=== PATIENT | male | born 1945 | race Caucasian/White ===

== ENCOUNTER → 2018-04-27 06:50 | Outpatient (CLI) | payer MEDICARE, OTHER, SELFPAY ==
[2018-04-27 08:23] LABS: Alanine Aminotransferase 37 IU/L (21-72); Albumin 4.1 g/dL (3.5-5.0); Albumin Globulin Ratio 1.5 (1.0-2.8); Alkaline Phosphatase 42 U/L (38-126); Aspartate Aminotransferase 28 IU/L (17-59); BUN Creatinine Ratio 24.4 (6-22); Bilirubin Total 0.9 mg/dL (0.2-1.3); Blood Urea Nitrogen 22 mg/dL (9-20); Calcium 9.4 mg/dL (8.4-10.2); Carbon Dioxide 32 mmol/L (22-32); Chloride 105 mmol/L (98-107); Estimated Glomerular Filt Rate > 60.0 mL/min (>60); Globulin 2.8 g/dL (1.7-4.1); Glucose 96 mg/dL (80-110); HEMOLYSIS < 15 (0-50); Potassium 4.8 mmol/L (3.4-5.1); Sodium 143 mmol/L (137-145); Total Protein 6.9 g/dL (6.3-8.2)
[2018-04-27 08:25] LABS: Add Manual Diff / Slide Review NO; Basophils Percent Auto 0.9 % (0-2); Eosinophils Percent Auto 2.2 % (2-4); Hematocrit 45.5 % (41-53); Hemoglobin 15.8 g/dL (13.5-17.5); Lymphocytes Percent Auto 29.6 % (25-40); Mean Corpuscular HGB Conc 34.8 % (30-36); Mean Corpuscular Hemoglobin 31.2 PG (26-34); Mean Corpuscular Volume 89.6 fL (80-100); Monocytes Percent Auto 7.6 % (3-14); Neutrophils Absolute Auto 3400 /uL (3000-5900); Neutrophils Percent Auto 59.7 % (50-75); Platelet Count 222 X10^3/uL (150-400); Red Blood Cell Count 5.08 X10^6/uL (4.5-5.9); Red Cell Distribution Width 12.8 % (11.6-14.8); White Blood Cell Count 5.7 X10^3/uL (4.5-11.0)
[2018-04-27 13:01] LABS: Cholesterol 193 mg/dL (140-199); HDL Cholesterol 60 mg/dL (40-60); LDL Cholesterol Calculated 116 mg/dL (<100); Triglycerides 86 mg/dL (35-150)
== END ==
PROVIDERS: PCP Family Medicine; Visit Provider Family Medicine
DX: E78.5 Hyperlipidemia, unspecified (principal); N40.1 Benign prostatic hyperplasia with lower urinary tract symptoms; Z00.00 Encounter for general adult medical examination without abnormal findings; Z12.5 Encounter for screening for malignant neoplasm of prostate
CPT/HCPCS: 36415; 80053; 80061; 84443; 85025; G0103

== ENCOUNTER → 2018-07-29 08:46 | Outpatient (CLI) | payer MEDICARE, OTHER, SELFPAY ==
--- NOTE | 2018-07-29 | DI.MRI.S_ITS ---
PROCEDURE: MR PELVIS WO CON INDICATIONS: PERSISTENT INTERMITTENT LEFT GROIN PAIN TECHNIQUE: Noncontrast coronal T1 spin echo and STIR through the bony pelvis. Sagittal T2 FSE with fat saturation, axial T1, STIR, and T2 FSE with fat saturation through the symphysis pubis. COMPARISON: None. FINDINGS: Image quality: Excellent. Tendons and muscles: The attachments of the rectus abdominis appear intact bilaterally. There is mild peritendinous edema along the left adductor longus origin with a small associated avulsion fracture. This The intervening common aponeurosis demonstrates minimal associated edema in the left. More inferiorly, the adductor longus musculotendinous junctions demonstrate minimal edema. More inferior images demonstrate no fascial herniations of the adductor longus muscle fibers. Bony structures: There is a small region of focal bone marrow edema in the left pubic body along the symphysis pubis with a small avulsion fracture inferiorly. There is mild edema within the pubic symphysis. No suspicious marrow space occupying lesions. Other tendons: The gluteus medius and minimus tendons appear intact, without associated muscle atrophy. The iliopsoas tendon appears intact, without adjacent bursal fluid collections. The origin of the hamstring tendons are intact at the ischial tuberosities. Hip joints: Larger field of view images demonstrate no avascular necrosis of the femoral heads. Limited evaluation of the labrum demonstrates a small amount of associated fluid signal on the left along the superior and anterosuperior labrum suggestive of a small tear with an associated small paralabral cyst. A suspected paralabral cyst is also demonstrated adjacent to the right labrum measuring up to 0.9 cm. Soft tissues: Immediately lateral to the rectus abdominis tendon fibers, the superficial rings of the inguinal canals demonstrate a small fat containing left inguinal hernia. The proximal sciatic neurovascular bundles appear normal adjacent to the hamstring tendons. No free pelvic fluid. Bladder wall thickness is normal. Genitourinary structures and bowel loops appear normal where visualized. IMPRESSION: 1. Mild peritendinitis at the origin of the left adductor longus with a small avulsion fracture from the inferior left pubic body along the pubic symphysis. 2. Possible labral tears with suspected paralabral cysts. If clinically indicated, further evaluation may be obtained with a dedicated MR arthrogram. Dictated by: Kasi Rhodes M.D. on 07/29/2018 at 10:08 Approved by: Kasi Rhodes M.D. on 07/29/2018 at 10:22
== END ==
PROVIDERS: PCP Family Medicine; Visit Provider Family Medicine
DX: S32.592A Other specified fracture of left pubis, initial encounter for closed fracture (principal); M77.8 Other enthesopathies, not elsewhere classified; R10.32 Left lower quadrant pain
CPT/HCPCS: 72195

== ENCOUNTER → 2019-05-24 07:51 | Outpatient (CLI) | payer MEDICARE, OTHER, SELFPAY ==
[2019-05-24 08:29] LABS: Add Manual Diff / Slide Review NO; Basophils Absolute Auto 0 /uL (0-100); Basophils Percent Auto 0.7 % (0-2); Eosinophils Absolute Auto 100 /uL (0-450); Eosinophils Percent Auto 2.4 % (2-4); Hemoglobin 16.3 g/dL (13.5-17.5); Lymphocytes Absolute Auto 1500 /uL (1100-4500); Lymphocytes Percent Auto 23.3 % (25-40); Mean Corpuscular HGB Conc 34.6 % (30-36); Mean Corpuscular Hemoglobin 31.5 PG (26-34); Mean Corpuscular Volume 91.2 fL (80-100); Monocytes Absolute Auto 500 /uL (0-900); Monocytes Percent Auto 7.3 % (3-14); Neutrophils Absolute Auto 4200 /uL (1500-7000); Neutrophils Percent Auto 66.3 % (50-75); Platelet Count 216 X10^3/uL (150-400); Red Blood Cell Count 5.16 X10^6/uL (4.5-5.9); Red Cell Distribution Width 12.9 % (11.6-14.8); White Blood Cell Count 6.3 X10^3/uL (4.5-11.0)
[2019-05-24 08:51] LABS: Alanine Aminotransferase 36 IU/L (21-72); Albumin 4.2 g/dL (3.5-5.0); Albumin Globulin Ratio 1.4 (1.0-2.8); Alkaline Phosphatase 48 U/L (38-126); Aspartate Aminotransferase 30 IU/L (17-59); BUN Creatinine Ratio 22.5 (6-22); Bilirubin Total 0.8 mg/dL (0.2-1.3); Blood Urea Nitrogen 18 mg/dL (9-20); Calcium 9.7 mg/dL (8.4-10.2); Carbon Dioxide 29 mmol/L (22-32); Chloride 103 mmol/L (98-107); Cholesterol 222 mg/dL (140-199); Estimated Glomerular Filt Rate > 60.0 mL/min (>60); Globulin 2.9 g/dL (1.7-4.1); Glucose 99 mg/dL (80-110); HDL Cholesterol 66 mg/dL (40-60); HEMOLYSIS < 15 (0-50); LDL Cholesterol Calculated 132 mg/dL (<100); Potassium 4.5 mmol/L (3.4-5.1); Sodium 141 mmol/L (137-145); Total Protein 7.1 g/dL (6.3-8.2); Triglycerides 119 mg/dL (35-150)
[2019-05-24 09:22] LABS: Thyroid Stimulating Hormone 2.54 uIU/mL (0.47-4.68)
[2019-05-24 09:40] LABS: Hep C Virus Ab w/Reflex Quant NEGATIVE s/c (NEGATIVE)
== END ==
PROVIDERS: PCP Student in an Organized Health Care Education/Training Program; Visit Provider Student in an Organized Health Care Education/Training Program
DX: Z00.00 Encounter for general adult medical examination without abnormal findings (principal); Z11.59 Encounter for screening for other viral diseases; E78.5 Hyperlipidemia, unspecified
CPT/HCPCS: 36415; 80053; 80061; 84443; 85025; 86803

== ENCOUNTER → 2019-06-14 12:31 | Outpatient (CLI) | payer MEDICARE, OTHER, SELFPAY ==
[2019-06-14 16:37] LABS: Hep C Virus Ab w/Reflex Quant NEGATIVE s/c (NEGATIVE)
== END ==
PROVIDERS: PCP Student in an Organized Health Care Education/Training Program; Visit Provider Student in an Organized Health Care Education/Training Program
DX: Z13.820 Encounter for screening for osteoporosis (principal); Z78.9 Other specified health status
CPT/HCPCS: 36415; 77080; 86803

== ENCOUNTER → 2020-10-17 11:42 | Outpatient (CLI) | payer MEDICARE, OTHER, SELFPAY ==
--- NOTE | 2020-10-17 11:46 | DI.CT.S_ITS ---
PROCEDURE: CT SINUS SCREEN WO CON INDICATIONS: Chronic pansinusitis TECHNIQUE: Noncontrast 3.0 mm axial images acquired from the frontal sinuses to the mid-sella, with coronal and sagittal reformats. For radiation dose reduction, the following was used: automated exposure control, adjustment of mA and/or kV according to patient size. COMPARISON: None. FINDINGS: Image quality: Excellent. Maxillary Sinuses: There is minimal mucosal thickening involving the floor of the maxillary antrum bilaterally. Ethmoid Air Cells: No bony remodeling or destruction. Sinuses are clear. Sphenoid Sinuses: No bony remodeling or destruction. Sinuses are clear. Frontal Sinuses: No bony remodeling or destruction. Sinuses are clear. Ostiomeatal Complexes: Ostiomeatal complexes are patent. No Christopher cells. Miscellaneous: Visualized intra-orbital contents are normal. No yomi bullosa or paradoxical turbinate curvature. No nasal septal deviation. IMPRESSION: Mild mucosal thickening involving the floor of the maxillary antrum bilaterally. Dictated by: Yoseph Mosqueda M.D. on 10/17/2020 at 15:46 Approved by: Yoseph Mosqueda M.D. on 10/17/2020 at 15:51
== END ==
PROVIDERS: PCP Student in an Organized Health Care Education/Training Program; Referring Provider Otolaryngology; Visit Provider Otolaryngology
DX: J32.4 Chronic pansinusitis (principal)
CPT/HCPCS: 70486

== ENCOUNTER → 2021-03-12 10:51 | Outpatient (CLI) | payer MEDICARE, OTHER, SELFPAY ==
[2021-03-12 14:41] LABS: COVID19 -Nasal RAPID Negative (Negative)
== END ==
PROVIDERS: PCP Student in an Organized Health Care Education/Training Program; Visit Provider Physician Assistant
DX: Z20.822 Contact with and (suspected) exposure to COVID-19 (principal)
CPT/HCPCS: 87635

== ENCOUNTER → 2021-03-14 08:39 | Outpatient (CLI) | payer MEDICARE, OTHER, SELFPAY ==
--- NOTE | 2021-03-14 | DI.ECHO.S_ITS ---
[facility]+ [facility] +---------+ : : [address] : : : : [id number] : : : : Phone: [phone]+ Echocardiogram Report + + :Name: JESI LEON Study Date: 03/14/2021 Height: 67 in : :[facility] ReadingLocation: Weight: 170 lb : : Gender: Male BSA: 1.9 m2 : :: 1945 Age: 76 yrs BP: 146/87 mmHg: :Reason For Study: Cardiomyopathy : :Ordering Physician: CHARMAINE, : :GABRIELLE Performed By: Rosalio aSnders : :Referring: GABRIELLE MONTANO : + + Interpretation Summary 1) Normal left ventricular thickness, size, wall motion, and systolic function (EF 55-60%). 2) Normal right ventricular size and function. 3) No significant valvular abnormalities. 4) No prior Echo available for comparison. Procedure: A two-dimensional transthoracic echocardiogram with color flow and Doppler was performed. The study quality was technically adequate. There is no prior echocardiogram noted for this patient. The patient was in sinus rhythm with heart rates between 48-66 bpm during the exam. Left Ventricle: The left ventricle is normal in size and wall thickness. Left ventricular systolic function is normal. The ejection fraction is estimated to be 55-60%. There are no focal wall motion abnormalities. Diastolic parameters suggest probable normal left ventricular diastolic function and normal filling pressures. Right Ventricle: The right ventricle is normal in size and function. Atria: Both atria are normal in size. There is no Doppler evidence for an interatrial shunt. Mitral Valve: The mitral valve is normal in structure and function. There is trace mitral regurgitation. Aortic Valve: The aortic valve is normal in structure and function. There is no aortic valve stenosis. No aortic regurgitation is present. Tricuspid Valve: The tricuspid valve is normal in structure and function. There is mild tricuspid regurgitation. The right ventricular systolic pressure is estimated to be at least 31 mmHg based on an estimated right atrial pressure of 3 mm Hg. Pulmonic Valve: The pulmonic valve is normal in structure and function. There is no pulmonic valvular regurgitation. Great Vessels: The aortic root is normal size. The dimensions of the ascending aorta are normal. The IVC is of normal diameter and collapses greater than 50% with a sniff. This suggests a low right atrial pressure of 3 mm Hg. Pericardium/ Pleura There is no pericardial effusion. There is no pleural effusion. MMode/2D Measurements & Calculations LVIDd: 4.9 cm LVOT diam: 2.0 cm LVIDs: 3.4 cm Ao root diam: 2.9 cm FS: 30.3 % asc Aorta Diam: 3.5 cm IVSd: 0.98 cm LVPWd: 0.72 cm LV hobbs. diameter/BSA (cm/m^2): 2.6 LV sys. diameter/BSA (cm/m^2): 1.8 LA A2 area: 21.9 cm2 RA long axis: 4.9 cm LA A4 area: 17.7 cm2 RA area: 18.1 cm2 LA length (vol): 5.3 cm RA vol: 56.8 ml LA vol: 62.0 ml RA : 30.1 ml/m2 LA vol index: 32.9 ml/m2 TAPSE: 2.8 cm Doppler Measurements & Calculations Ao V2 max: 122.5 cm/sec LVOT Max Ric: 111.8 cm/sec Ao V2 mean: 88.5 cm/sec LV V1 max P.0 mmHg Ao max P.0 mmHg LV V1 VTI: 25.3 cm Ao mean P.4 mmHg GAGE(I,D): 3.0 cm2 Ao V2 VTI: 26.6 cm GAGE(V,D): 2.8 cm2 sev ratio: 0.95 GAGE indexed to BSA (cm^2/m^2): 1.6 MV E max ric: 64.3 cm/sec TR max ric: 262.7 cm/sec MV A max ric: 74.0 cm/sec TR max P.6 mmHg MV E/A: 0.87 PA pr(Accel): 35.3 mmHg Med Peak E' Ric: 8.9 cm/sec E/E' med: 7.2 Lat Peak E' Ric: 12.7 cm/sec E/E' lat: 5.1 E/e' average: 6.1 MV dec time: 0.20 sec SV(LVOT): 78.8 ml Reading Physician:01:01 PM
--- NOTE | 2021-03-14 20:25 | DI.NM.S_ITS ---
DATE OF SERVICE: 03/14/2021 PROCEDURE: Exercise perfusion study. INDICATION: SVT with underlying hypertension and hyperlipidemia. RADIOPHARMACEUTICAL: 24.3 millicurie technetium-99m Myoview IV was injected at stress and 12.4 millicurie technetium-99m Myoview IV was injected at rest. CARDIAC STRESS: The patient underwent exercise perfusion study under the supervision of an attending staff. The patient walked on Bogdan protocol for 9 minutes and achieved 110 percent of target heart rate. Baseline blood pressure 128/76. Maximum blood pressure 190/76. Functional aerobic impairment -45 percent. Achieved 10.1 METs of workload. No chest pain or lightheadedness or anginal symptoms. Baseline EKG revealed sinus rhythm. During stress test, there were no convincing ischemic changes. However, patient had frequent PACs, as well as PVCs and couplets. In recovery, patient had frequent nonconducted PACs, as well as conducted PACs and some U wave. I reviewed those rhythm strips with our life insurance underwriter, Dr. Oleary, who agrees with the findings. No significant high-degree AV block seen. No obvious atrial fibrillation or sustained ventricular tachycardia seen. RAW DATA: There is increased subdiaphragmatic activity. GATED STUDY: Resting LV ejection fraction 57 and stress LV ejection fraction 69 percent. No obvious wall motion abnormalities. Resting end-diastolic volume 105 mL. TID ratio 0.91, which is within normal limits. Lung/heart ratio 0.20, which is within normal limits. MYOCARDIAL PERFUSION SCAN: Stress supine, resting supine and stress prone images were compared to each other. The stress and resting supine images revealed moderate-size, mild to moderately decreased perfusion of inferior wall extending into the inferoapex, as well as basal inferolateral wall, which got significantly improved during the stress prone images, suggestive of diaphragmatic tissue attenuation artifact. The stress prone images remaining have minimally decreased perfusion of inferior apex. No obvious reversible ischemia. CONCLUSION: I will call this study likely a normal myocardial perfusion study with evidence of diaphragmatic tissue attenuation artifact, which got significantly improved during stress prone images. There is evidence of some persistent tissue attenuation artifact, as well. Inferior wall and inferoapex are moving well. No obvious regional wall motion abnormalities. Left ventricular function is preserved. Good exercise tolerance. No anginal symptoms. The patient had frequent premature atrial contractions and premature ventricular contractions during stress without any ventricular tachycardia or atrial fibrillation. In recovery, the patient has nonconducted, as well as conducted premature atrial contractions and some U wave. There was no high- degree atrioventricular block seen. Rhythm strips were reviewed with our EP Dr. Oleary. As far as perfusion scan is concerned, this is a low-risk myocardial perfusion scan. TrungRenard bhandari - Smita/bob doc#: [id number]/job#: [id number] dd: 03/14/2021 17:48:00 dt: 03/14/2021 20:04:00 DICTATING /COPIES TO: Evelyne Hines MD COPIES MNE: RUSSELL;
== END ==
PROVIDERS: PCP Student in an Organized Health Care Education/Training Program; Referring Provider Student in an Organized Health Care Education/Training Program; Visit Provider Student in an Organized Health Care Education/Training Program
DX: I07.1 Rheumatic tricuspid insufficiency (principal); I47.1 Supraventricular tachycardia; I10 Essential (primary) hypertension; E78.5 Hyperlipidemia, unspecified; I42.9 Cardiomyopathy, unspecified; Z86.79 Personal history of other diseases of the circulatory system
CPT/HCPCS: 78452; 93017; 93306; A9502

== ENCOUNTER → 2023-04-15 07:07 | Outpatient (CLI) | payer MEDICARE, OTHER, SELFPAY ==
[2023-04-15 08:27] LABS: Add Manual Diff / Slide Review NO; Basophils Absolute Auto 100 /uL (0-100); Eosinophils Absolute Auto 100 /uL (0-450); Eosinophils Percent Auto 1.9 % (2-4); Hematocrit 44.5 % (41-53); Hemoglobin 15.5 g/dL (13.5-17.5); Lymphocytes Absolute Auto 1400 /uL (1100-4500); Lymphocytes Percent Auto 27.9 % (25-40); Mean Corpuscular HGB Conc 34.8 % (30-36); Mean Corpuscular Hemoglobin 31.3 PG (26-34); Monocytes Absolute Auto 300 /uL (0-900); Monocytes Percent Auto 6.6 % (3-14); Neutrophils Absolute Auto 3200 /uL (1500-7000); Neutrophils Percent Auto 62.6 % (50-75); Platelet Count 201 X10^3/uL (150-400); Red Blood Cell Count 4.94 X10^6/uL (4.5-5.9); Red Cell Distribution Width 13.7 % (11.6-14.8); White Blood Cell Count 5.2 X10^3/uL (4.5-11.0)
[2023-04-15 09:13] LABS: Prostate Specific Antigen 3.99 ng/mL (0.10-4.00)
[2023-04-15 09:15] LABS: TSH w/ Reflex to FT4 2.67 uIU/mL (0.47-4.68)
== END ==
PROVIDERS: PCP Family Medicine; Referring Provider Internal Medicine; Visit Provider Internal Medicine
DX: Z00.00 Encounter for general adult medical examination without abnormal findings (principal); N40.1 Benign prostatic hyperplasia with lower urinary tract symptoms; E78.5 Hyperlipidemia, unspecified; I47.1 Supraventricular tachycardia; M19.90 Unspecified osteoarthritis, unspecified site
CPT/HCPCS: 36415; 84153; 84443; 85025

== ENCOUNTER → 2023-09-14 15:04 | Outpatient (CLI) | payer MEDICARE, OTHER, SELFPAY ==
--- NOTE | 2023-09-14 | DI.RAD.S_ITS ---
PROCEDURE: XR KNEE LT 3V INDICATIONS: ACUTE PAIN OF LEFT KNEE INJURY TECHNIQUE: 3 views of the knee were acquired. COMPARISON: None. FINDINGS: Bones: No fractures or dislocations. 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 No patellar subluxation. No suspicious bony lesions. Soft tissues: No significant joint effusion. No suspicious soft tissue calcifications. IMPRESSION: No acute left knee fracture or dislocation. 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 No significant joint effusion. Dictated by: Darryl Blanca M.D. on 09/14/2023 at 17:05 Approved by: Darryl Blanca M.D. on 09/14/2023 at 17:05
== END ==
PROVIDERS: PCP Family Medicine; Referring Provider Family Medicine; Visit Provider Family Medicine
DX: M17.12 Unilateral primary osteoarthritis, left knee (principal); M23.92 Unspecified internal derangement of left knee; M25.562 Pain in left knee
CPT/HCPCS: 73562

== ENCOUNTER → 2023-09-17 16:07 | Outpatient (CLI) | payer MEDICARE, OTHER, SELFPAY ==
--- NOTE | 2023-09-17 16:09 | DI.MRI.S_ITS ---
PROCEDURE: MR KNEE LT WO CON INDICATIONS: Pain in left knee TECHNIQUE: Noncontrast sagittal PD fast spin echo and T2 fast spin echo with fat saturation, sagittal 3-D FLASH with fat saturation; coronal T1 spin echo and PD fast spin echo with fat saturation, and axial PD fast spin echo with fat saturation through the knee. COMPARISON: [facility], CR, XR KNEE LT 3V, 09/14/2023, 15:21. FINDINGS: Image quality: Excellent. Menisci: There is large complex tear involving the posterior horn body of the medial meniscus extending to the inferior articular surface. Horizontal tear is seen of the body of the lateral meniscus. The meniscal root ligaments appear intact. Cruciate ligaments: The anterior and posterior cruciate ligaments appear intact. Mild mucoid degeneration of ACL. Medial structures: The medial collateral ligament appears intact. There is low-grade sprain of the semimembranosus tendon insertions. The meniscocapsular junction appears intact. Visualized portions of the pes anserinus tendons appear normal. No abnormal bursal fluid. Lateral structures: The lateral collateral ligament, long and short heads of the biceps femoris tendon appear intact. The popliteus tendon appears normal. Mild edema adjacent to the iliotibial band (series 11 image 18). Anterior structures: The quadriceps and patellar tendons appear intact. Patellar alignment is normal. No femoral trochlear dysplasia or ventral trochlear prominence. No edema in the infrapatellar fat pad. Bones and cartilage: No bone marrow contusions or fractures. There is a small osteochondral lesion in the anterior aspect of the medial tibial plateau measuring 0.8 x 1.0 cm. There is mild tricompartmental cartilage thinning and fibrillation, most pronounced in the medial femorotibial compartment. Note is made of a small osteochondroma in the medial femoral condyle (series 10, image 19). Joint space: There is mild knee joint effusion. There is a tiny Waldron's cyst. Normal appearing synovial plicae are incidentally noted. IMPRESSION: 1. Large complex tear of the medial meniscus involving the posterior horn body. 2. Horizontal tear of the body of the lateral meniscus. 3. There is a 0.8 x 1.0 cm osteochondral lesion in the anterior aspect of the medial tibial plateau. 4. Edema adjacent to the iliotibial band suggesting iliotibial band syndrome. Recommend clinical correlation for anterior lateral knee pain. 5. Mild tricompartmental cartilage thinning and fibrillation. 6. Small knee joint effusion. Dictated by: Kingston Narvaez M.D. on 09/20/2023 at 9:19 Approved by: Kingston Narvaez M.D. on 09/20/2023 at 21:41
== END ==
PROVIDERS: PCP Family Medicine; Referring Provider Family Medicine; Visit Provider Family Medicine
DX: S83.232A Complex tear of medial meniscus, current injury, left knee, initial encounter (principal); S83.282A Other tear of lateral meniscus, current injury, left knee, initial encounter; M25.462 Effusion, left knee; M25.562 Pain in left knee; M23.92 Unspecified internal derangement of left knee; M89.9 Disorder of bone, unspecified
CPT/HCPCS: 73721

== ENCOUNTER → 2023-12-07 12:38 | Outpatient (CLI) | payer MEDICARE, OTHER, SELFPAY ==
--- NOTE | 2023-12-07 12:41 | DI.MRI.S_ITS ---
PROCEDURE: MR PELVIC PROSTATE PROTOCOL INDICATIONS: Elevated and rising PSA TECHNIQUE: Coronal HASTE, axial T1 FSE with fat saturation, 3-plane nonbreath-hold T2 FSE. After the administration of contrast, dynamic axial, delayed axial and coronal VIBE or 2-D FLASH with fat saturation through the pelvis. Diffusion weighted imaging and ADC was performed. COMPARISON: None. FINDINGS: Image quality: Overall diagnostic, however the posterior peripheral zone is not well seen due to susceptibility artifact from prominent rectal gas. Prostate: 4.4 x 3.6 x 4.7 centimeters. Estimated volume is 39 cc. PSA density is about 0.1. Transitional zone heterogenous nodules are present, either well encapsulated or mostly encapsulated, compatible with PI-RADS 1 or 2 likely BPH nodules. Mildly T2 hypointense heterogenous striated appearance of the peripheral zone is commonly seen with current or prior prostatitis, PI-RADS 2. 1 x 0.8 x 0.6 centimeter left posteromedial apex peripheral zone lesion (4/15, 6/13). DWI is inadequate in this region due to rectal gas. T2 score 3. DCE positive (14/19). PI-RADS 4. 0.7 centimeter left mid gland posterolateral peripheral zone lesion (4/11). T2 score 3. DWI score 3. DCE positive. PI-RADS 4. The seminal vesicles appear clear. No definite extracapsular disease. Genitourinary system: Bladder appears unremarkable. No distal ureter dilation Bowel and peritoneum: No bowel obstruction. Increased fecal loading. No pathologic ascites. Nodes and vessels: No aneurysmal vessel identified. No pathologic lymph nodes by size criteria Soft tissues: Small fat containing left inguinal hernia Bones: There is mild focal enhancement in the right superior acetabulum, indeterminate. IMPRESSION: Small PI-RADS 4 lesions as above. Limited evaluation however - DWI is inadequate due to artifact from rectal gas. Indeterminate mild enhancement in the right superior acetabulum. Attention on follow-up if there is biopsy-proven malignancy in the prostate or elsewhere. Other findings as above. Dictated by: James Carrion M.D. on 12/07/2023 at 14:46 Approved by: James Carrion M.D. on 12/07/2023 at 14:54
== END ==
PROVIDERS: PCP Family Medicine; Referring Provider Urology; Visit Provider Urology
DX: N42.9 Disorder of prostate, unspecified (principal); R97.20 Elevated prostate specific antigen [PSA]; K40.90 Unilateral inguinal hernia, without obstruction or gangrene, not specified as recurrent
CPT/HCPCS: 72197; A9579

== ENCOUNTER → 2024-01-24 10:51 | Outpatient (CLI) | payer MEDICARE, OTHER, SELFPAY ==
--- NOTE | 2024-01-24 10:54 | DI.CT.S_ITS ---
PROCEDURE: CT ABDOMEN PELVIS W CON INDICATIONS: New diagnosis prostate cancer TECHNIQUE: After the administration of intravenous contrast, axial sections acquired from the lung bases to the pubic symphysis. Coronal and sagittal reformats were performed. For radiation dose reduction, the following was used: automated exposure control, adjustment of mA and/or kV according to patient size. COMPARISON: None. FINDINGS: Image quality: Diagnostic. Lower Chest: No significant findings. Small hiatal hernia. ABDOMEN: Liver: No solid mass. Normal size. Mild hepatic steatosis. Gallbladder: There are calcified gallstones. Pancreas: No ductal dilation. Spleen: Size is within normal limits. There are multiple calcified granulomas in spleen. Adrenal Glands: No adrenal nodules. Kidneys and Ureters: No hydronephrosis. No solid mass. No complex renal cystic lesion which requires follow up. Stomach and Bowel: Normal colonic caliber, without significant wall thickening. Peritoneum: No abnormal intraperitoneal fluid. No free air. Ventral Wall: No significant ventral hernia. Abdominal Nodes: No retroperitoneal or mesenteric adenopathy by size criteria. Vessels: Aorta and inferior vena cava are normal in size. PELVIS: Pelvic Organs: Prostate is enlarged.. Bladder: No bladder wall thickening, accounting for underdistention. Pelvic Nodes: No enlarged lymph nodes. Miscellaneous: There is a small fat containing left inguinal hernia. Bones: There is a sclerotic focus in T11 vertebral body, most likely a bone island. Eaic-fl-zqgiqdrj spondylitic changes in lumbar spine. IMPRESSION: 1. Prostate is enlarged. 2. No retroperitoneal or pelvic lymphadenopathy by size criteria. 3. Hepatic steatosis. 4. Cholelithiasis. 5. 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 7. A sclerotic focus in T11 vertebral body, most likely a bone island. Dictated by: Kingston Narvaez M.D. on 01/24/2024 at 12:59 Approved by: Kingston Narvaez M.D. on 01/24/2024 at 13:03
--- NOTE | 2024-01-24 10:54 | DI.NM.S_ITS ---
PROCEDURE: NM BONE SCAN WHOLE BODY RADIOPHARMACEUTICAL: 20.5 mCi Tc-99m MDP IV. INDICATIONS: New diagnosis prostate cancer TECHNIQUE: Delayed whole-body scintigrams were obtained approximately 3-4 hours after intravenous injection of radiotracer. Anterior and posterior views were acquired from vertex to feet. Additional left and right oblique views of the pelvis were obtained. COMPARISON: [facility], MR, MR PELVIC PROSTATE PROTOCOL, 12/07/2023, 12:48On previous prostate MRI . [facility], CT, CT ABDOMEN PELVIS W CON, 01/24/2024, 11:58. FINDINGS: There is mild asymmetric uptake in the right acetabulum, seen with enhancement. Tiny indeterminate focus in the left superior orbital wall. Scattered degenerative changes in the spine and upper lower extremities. There is normal radiotracer excretion into the urinary system. IMPRESSION: Mild asymmetric uptake in the right superior acetabulum corresponding to enhancement on prior MRI. This is moderate suspicion for malignancy. If further evaluation is desired, consider prostate PET-CT. Tiny focus of uptake in the left superior orbital wall is nonspecific and lower suspicion. Degenerative changes are seen in the upper lower extremities and spine. Dictated by: James Carrion M.D. on 01/24/2024 at 16:10 Approved by: James Carrion M.D. on 01/24/2024 at 16:13
[2024-01-24 11:41] LABS: Estimated Glomerular Filt Rate > 60 mL/min (>60)
== END ==
PROVIDERS: Radiology Diagnostic Radiology; PCP Family Medicine; Referring Provider Urology; Visit Provider Urology
DX: C61 Malignant neoplasm of prostate (principal); R97.20 Elevated prostate specific antigen [PSA]; K44.9 Diaphragmatic hernia without obstruction or gangrene; K76.0 Fatty (change of) liver, not elsewhere classified; K80.20 Calculus of gallbladder without cholecystitis without obstruction; K40.90 Unilateral inguinal hernia, without obstruction or gangrene, not specified as recurrent
CPT/HCPCS: 36415; 74177; 78306; 82565; A9503; Q9967

== ENCOUNTER → 2024-04-27 11:21 | Outpatient (CLI) | payer MEDICARE, OTHER, SELFPAY ==
[2024-04-27 18:07] LABS: Prostate Specific Antigen 3.52 ng/mL (0.10-4.00)
== END ==
PROVIDERS: PCP Family Medicine; Referring Provider Urology; Visit Provider Urology
DX: C61 Malignant neoplasm of prostate (principal)
CPT/HCPCS: 36415; 84153

== ENCOUNTER → 2024-07-20 11:34 | Outpatient (CLI) | payer MEDICARE, OTHER, SELFPAY ==
[2024-07-20 13:03] LABS: Prostate Specific Antigen 4.28 ng/mL (0.10-4.00)
== END ==
PROVIDERS: PCP Family Medicine; Referring Provider Urology; Visit Provider Urology
DX: C61 Malignant neoplasm of prostate (principal)
CPT/HCPCS: 36415; 84153

== ENCOUNTER → 2024-10-23 08:09 | Outpatient (CLI) | payer MEDICARE, OTHER, SELFPAY ==
[2024-10-23 10:27] LABS: Prostate Specific Antigen 3.69 ng/mL (0.10-4.00)
== END ==
PROVIDERS: PCP Family Medicine; Referring Provider Urology; Visit Provider Urology
DX: C61 Malignant neoplasm of prostate (principal); R97.20 Elevated prostate specific antigen [PSA]
CPT/HCPCS: 36415; 84153

== ENCOUNTER → 2025-02-01 12:11 | Outpatient (CLI) | payer MEDICARE, OTHER, SELFPAY ==
[2025-02-01 13:54] LABS: Prostate Specific Antigen 4.46 ng/mL (0.10-4.00)
== END ==
PROVIDERS: Urology; PCP Family Medicine; Referring Provider Urology; Visit Provider Urology
DX: C61 Malignant neoplasm of prostate (principal)
CPT/HCPCS: 84153

== ENCOUNTER 2025-03-19 10:09 | Emergency (ER) | payer MEDICARE, OTHER, SELFPAY ==
[2025-03-19 10:24] VITALS: BP 162/78; PULSE 53; RESP 18; TEMP 36.4; O2SAT 100; BMI 25.7
--- NOTE | 2025-03-19 10:49 | ED.URI ---
HPI - URI/Sore Throat General Chief Complaint: Upper Respiratory Symptoms Stated Complaint: Cold for 10 days Time Seen by Provider: 03/19/25 10:14 Source: patient Mode of arrival: Ambulatory History of Present Illness HPI Narrative: 80-year-old gentleman history of prostate cancer currently under active surveillance no current treatment presents with cough, sorethroat, shortness of breath, weakness, that started Wednesday after playing racquetball. He has a productive cough at nighttime with green-yellow sputum production but denies fever, chills, bodyaches, nausea, vomiting, diarrhea. No known sick contacts. He has tried OTC meds with no significant relief of symptoms. Other than what is stated 14 point review of system is negative. Related Data Home Medications ?Medication ?Instructions ?Recorded ?Confirmed ezetimibe 10 mg tablet (Zetia) 10 mg PO DAILY 11/25/23 02/07/25 pravastatin 10 mg tablet See Rx Instructions PO DAILY 05/03/24 02/07/25 Previous Rx's ?Medication ?Instructions ?Recorded levofloxacin 750 mg tablet 750 mg PO DAILY #3 tabs 02/07/25 amoxicillin 875 mg-potassium 1 tab PO Q12H #14 tabs 03/19/25 clavulanate 125 mg tablet azithromycin 250 mg tablet 250 mg PO DAILY 4 days #4 tabs 03/19/25 Allergies Allergy/AdvReac Type Severity Reaction Status Date / Time grass pollen Allergy Mild Verified 03/19/25 10:25 tree and shrub pollen Allergy Mild Verified 03/19/25 10:25 Review of Systems Review of Systems ROS Unobtainable: All systems reviewed & are unremarkable except as noted in HPI and below Patient History Medical History Prostate cancer Abnormal finding on imaging Secondhand smoke exposure Benign prostatic hyperplasia Rising PSA level Elevated PSA Lower urinary tract symptoms (LUTS) Hx of primary hypertension Hx of chronic arthritis Surgical History Hx of circumcision Hx of appendectomy Family History Mother Cancer Social History marital status: number of children: 1 leisure activities: sports alcohol intake: current caffeine: Yes Type(s) of exercise: aerobic frequency: 3-4 times per week duration: 60-90 minutes/day Smoking Status: Never smoker Alcohol type: wine Exam Narrative Exam Narrative: GENERAL: [80] year old patient appears stated age. Well-developed patient, in mild distress. HEAD: Atraumatic. Normocephalic. EYES: Pupils equal round and reactive. Extraocular motions intact. No scleral icterus. No injection or drainage. ENT: Nose without bleeding, purulent drainage. Throat without erythema, tonsillar hypertrophy or exudate. Airway patent. NECK: Trachea midline. Non tender CARDIOVASCULAR: Regular rate and rhythm without murmurs, gallops, or rubs. RESPIRATORY: \faint crackles bilateral bases GASTROINTESTINAL: Abdomen soft, non-tender, nondistended. EXTREMITIES: No edema or joint tenderness. BACK: Nontender without deformity or crepitance. No flank tenderness. NEURO: AOx3. SKIN: No rash or erythema of visible areas Initial Vital Signs Initial Vital Signs: Vital Signs Temperature 97.6 F 03/19/25 10:24 Pulse Rate 53 L 03/19/25 10:24 Respiratory Rate 18 03/19/25 10:24 Blood Pressure 162/78 H 03/19/25 10:24 Pulse Oximetry 100 03/19/25 10:24 Oxygen Delivery Method Room Air 03/19/25 10:24 Course Orders Ordered: ED Orders 03/19/25 10:48 CXR [XR chest 2V] Stat Covid-19 + FLU A/B + RSV - PCR Stat Vital Signs Vital signs: Vital Signs - 8 hr 03/19/25 10:24 Temperature 97.6 F Pulse Rate 53 L Respiratory Rate 18 Blood Pressure 162/78 H Pulse Oximetry 100 Oxygen Delivery Method Room Air MDM - URI/Sore Throat Imaging Data Chest x-ray: Radiologist's Impression: [address] [address] XRay Report Signed Patient: Renard Nino MR#: [id number] : 1945 Acct:[id number] Age/Sex: 80 / M Date of Service: 03/19/25 Loc: ED Accession Number: [id number] Procedure: XR chest 2V Ordering Provider: Umesh Hagen D.O. PROCEDURE: XR CHEST 2V INDICATIONS: cough TECHNIQUE: 2 views of the chest were acquired. COMPARISON: None. FINDINGS: Surgical changes and devices: None. Lungs and pleura: Developing consolidation in the left middle lung zone. Mediastinum: Mediastinal contours are normal. Heart size is normal. Bones and chest wall: No suspicious bony abnormalities. Soft tissues appear unremarkable. IMPRESSION: Developing consolidation in the left middle lung zone, concerning for early pneumonia. Recommend follow-up in 1-2 months with chest x-ray to ensure resolution. MDM Narrative Medical decision making narrative: Vital signs, nurse triage note, medication list, previous ER visits, and all imaging studies reviewed. Chest x-ray showed developing consolidation in left middle lung zone concerning for early pneumonia. Patient given Augmentin Zithromax here and will be discharged on same antibiotics. Differential diagnosis includes COVID flu RSV pneumonia. Discharge Plan Departure Patient Disposition: Home Clinical Impression: Pneumonia Qualifiers: Pneumonia type: due to Pneumococcus Instructions: DI for Pneumonia -- Adult Activity Restrictions/Additional Instructions: Return with new or worsening symptoms. Take your medicines directed. Keep hydrated. Follow up PCP 1-2 weeks if no improvement in symptoms. Prescriptions: New amoxicillin-pot clavulanate 875-125 mg tablet 1 tab PO Q12H Qty: 14 0RF azithromycin 250 mg tablet 250 mg PO DAILY 4 Days Qty: 4 0RF Rx Instructions: start on day 2 of therapy No Action ezetimibe [Zetia] 10 mg tablet 10 mg PO DAILY pravastatin 10 mg tablet See Rx Instructions PO DAILY Rx Instructions: 5mg orally daily; levofloxacin 750 mg tablet 750 mg PO DAILY Qty: 3 0RF Rx Instructions: take one tab the morning before, the morning of and the morning after your procedure Referrals: Mariela العراقي MD [Primary Care Provider, Family Practice] Stand Alone Forms: Patient Portal/API
[2025-03-19] MEDS: AZITHROMYCIN 250 MG TABLET 500 MG PO (11:52)
[2025-03-19] MEDS: AMOXICILLIN/CLAV 875/125 MG 1 TAB PO (11:52)
[2025-03-19 12:00] VITALS: BP 165/72; PULSE 54; RESP 18; O2SAT 98
[2025-03-19 12:01] LABS: Influenza A - CEPHEID Flu A NEGATIVE (NEGATIVE); Influenza B - CEPHEID Flu B NEGATIVE (NEGATIVE)
[2025-03-19 12:03] LABS: COVID-19 CEPHEID 4-PLEX PCR Negative (Negative)
== END 2025-03-19 12:00 | disposition home or self-care (01) ==
PROVIDERS: Emergency Provider Family Medicine; PCP Family Medicine
DX: J13 Pneumonia due to Streptococcus pneumoniae (principal)
CPT/HCPCS: 71046; 87637; 99283

== ENCOUNTER → 2025-04-23 08:56 | Outpatient (CLI) | payer MEDICARE, OTHER, SELFPAY ==
--- NOTE | 2025-04-23 | DI.RAD.S_ITS ---
PROCEDURE: XR CHEST 2V INDICATIONS: PNEUMONIA TECHNIQUE: 2 views of the chest were acquired. COMPARISON: [facility], CT, CT ABDOMEN PELVIS W CON, 01/24/2024, 11:58. [facility], CR, XR CHEST 2V, 03/19/2025, 10:06. FINDINGS: Surgical changes and devices: None. Lungs and pleura: Decreased conspicuity of the left mid lung airspace opacity. No pleural effusion or pneumothorax.. Mediastinum: Mediastinal contours are normal. Heart size is normal. Bones and chest wall: No suspicious bony abnormalities. Soft tissues appear unremarkable. IMPRESSION: Decreased conspicuity of the left mid lung airspace opacity which may represent resolving pneumonia. Recommend follow-up chest radiograph in 4-6 weeks. Dictated by: Valente Larose M.D. on 04/23/2025 at 11:43 Approved by: Valente Larose M.D. on 04/23/2025 at 14:57
== END ==
PROVIDERS: PCP Family Medicine; Referring Provider Family Medicine; Visit Provider Family Medicine
DX: J18.9 Pneumonia, unspecified organism (principal)
CPT/HCPCS: 71046

== ENCOUNTER → 2025-04-24 08:12 | Outpatient (CLI) | payer MEDICARE, OTHER, SELFPAY ==
--- NOTE | 2025-04-24 08:15 | DI.CT.S_ITS ---
PROCEDURE: CT SINUS SCREEN WO CON INDICATIONS: DYSFUNCTION OF BOTH EUSTACHIAN TUBES TECHNIQUE: Noncontrast 3.0 mm axial images acquired from the frontal sinuses to the mid- sella, with coronal and sagittal reformats. For radiation dose reduction, the following was used: automated exposure control, adjustment of mA and/or kV according to patient size. COMPARISON: [facility], CT, CT SINUS SCREEN WO CON, 10/17/2020, 11:48. FINDINGS: Image quality: Excellent. Maxillary Sinuses: No bony remodeling or destruction. There is mild mucosal thickening seen involving the inferior aspects of the maxillary sinuses, right worse than left. Ethmoid Air Cells: Mild mucosal thickening can be seen within the ethmoid air cells. There is demineralization of the ethmoid air cell bony septations. Sphenoid Sinuses: No bony remodeling or destruction. Sinuses are clear. Frontal Sinuses: No bony remodeling or destruction. Sinuses are clear. Ostiomeatal Complexes: The ostiomeatal complexes are patent, yet they are constitutionally narrowed, with bilateral Christopher cells. There is mild demineralization of the ostiomeatal complexes. Miscellaneous: Visualized intra-orbital contents are normal. There is a small left-sided yomi bullosa. No nasal septal deviation. The nasopharynx demonstrates an unremarkable appearance, without masses. No abnormal fluid can be seen within the middle ear cavities or within the mastoid air cells. There is a stable bone island seen involving the left zygoma. IMPRESSION: Focal maxillary sinus disease seen, which is similar to 2020. No nasopharyngeal mass is seen. No abnormal fluid seen within the middle ear cavities or within the mastoid air cells. The ostiomeatal complexes are patent, yet they are constitutionally narrowed, with bilateral Christopher cells. Areas of bony demineralization are seen, which are consistent with chronic sinusitis. Dictated by: Richmond Valentine M.D. on 04/24/2025 at 10:26 Approved by: Richmond Valentine M.D. on 04/24/2025 at 10:29
== END ==
LOC: CT 08:13
PROVIDERS: PCP Family Medicine; Referring Provider Family Medicine; Visit Provider Family Medicine
DX: H69.93 Unspecified Eustachian tube disorder, bilateral (principal); J32.0 Chronic maxillary sinusitis
CPT/HCPCS: 70486

== ENCOUNTER → 2025-05-29 10:40 | Outpatient (CLI) | payer MEDICARE, OTHER, SELFPAY ==
--- NOTE | 2025-05-29 10:42 | DI.RAD.S_ITS ---
PROCEDURE: XR CHEST 2V INDICATIONS: PNEUMONIA TECHNIQUE: 2 views of the chest were acquired. COMPARISON: [facility], CR, XR CHEST 2V, 04/23/2025, 8:04. [facility], CR, XR CHEST 2V, 03/19/2025, 10:06. FINDINGS: Surgical changes and devices: None. Lungs and pleura: Lungs are clear. No pleural effusions or pneumothorax. Bronchial wall thickening is noted. Previous left lung opacities have resolved. Mediastinum: Mediastinal contours appear normal. Heart size is normal. Atheromatous plaques are noted thoracic aorta. Bones and chest wall: No suspicious bony abnormalities. Soft tissues appear unremarkable. Multilevel degenerative disc disease noted. IMPRESSION: Bronchial wall thickening is noted. These findings are nonspecific but can be due to reactive airways disease or bronchitis. No consolidation. No acute cardiopulmonary abnormality is seen. Dictated by: Nisreen Cervantes M.D. on 05/29/2025 at 14:24 Approved by: Nisreen Cervantes M.D. on 05/29/2025 at 14:31
== END ==
PROVIDERS: PCP Family Medicine; Referring Provider Family Medicine; Visit Provider Family Medicine
DX: J18.9 Pneumonia, unspecified organism (principal); M17.12 Unilateral primary osteoarthritis, left knee; M25.562 Pain in left knee; Z68.25 Body mass index [BMI] 25.0-25.9, adult
CPT/HCPCS: 20610; 71046; 99212; J1010